=== PATIENT | male | born 1985 | race Two or more races ===

== ENCOUNTER 2021-06-26 14:22 | Inpatient (IN) | payer OTHER ==
--- NOTE | 2021-06-26 15:32 | ED ---
General Adult HPI - General Chief complaint: Psychiatric Symptoms Stated complaint: Petition Time Seen by Provider: 06/26/21 14:35 Source: patient, RN notes reviewed, old records reviewed Mode of arrival: ambulatory Limitations: no limitations - History of Present Illness Initial comments: This a 36-year-old male who presents emergency because there is a petition for him to be evaluated. This includes [facility] brought him in. Patient's states becoming more more paranoid and he is assessed with the fact that he he thinks that she is cheating on her. Patient did agree that he thinks she's cheated on him with at least 8 different people. Patient states he knows this because he can just feel. Patient denies being suicidal or homicidal. Patient states he quit his job because his boss shot himself in the face. Patient denies any drug or alcohol use. Patient denies any physical complaints. - Related Data Home Medications Medication Instructions Recorded Confirmed No Known Home Medications 06/26/21 06/26/21 Allergies Allergy/AdvReac Type Severity Reaction Status Date / Time cephalexin [From Keflex] Allergy Rash/Hives Verified 06/26/21 15:56 Review of Systems ROS Statement: Those systems with pertinent positive or pertinent negative responses have been documented in the HPI. ROS Other: All systems not noted in ROS Statement are negative. Past Medical History Past Medical History: No Reported History History of Any Multi-Drug Resistant Organisms: None Reported Past Surgical History: No Surgical Hx Reported Smoking Status: Current every day smoker Past Alcohol Use History: Daily Past Drug Use History: Marijuana General Exam - General Exam Comments Initial Comments: GENERAL: Patient is well-developed and well-nourished. Patient is nontoxic and well- hydrated and is in mild distress. ENT: Neck is soft and supple. No significant lymphadenopathy is noted. Oropharynx is clear. Moist mucous membranes. Neck has full range of motion without eliciting any pain. EYES: The sclera were anicteric and conjunctiva were pink and moist. Extraocular movements were intact and pupils were equal round and reactive to light. Eyelids were unremarkable. PULMONARY: Unlabored respirations. Good breath sounds bilaterally. No audible rales rhonchi or wheezing was noted. CARDIOVASCULAR: There is a regular rate and rhythm without any murmurs gallops or rubs. ABDOMEN: Soft and nontender with normal bowel sounds. SKIN: Skin is clear with no lesions or rashes and otherwise unremarkable. NEUROLOGIC: Patient is alert and oriented x3. Cranial nerves II through XII are grossly intact. Motor and sensory are also intact. Normal speech, volume and content. Symmetrical smile. MUSCULOSKELETAL: Normal extremities with adequate strength and full range of motion. LYMPHATICS: No significant lymphadenopathy is noted PSYCHIATRIC: Patient is very paranoid that his is cheating on him. Limitations: no limitations Course Vital Signs 06/26/21 14:31 Temperature 98.3 F Pulse Rate 121 H Respiratory 18 Rate Blood Pressure 140/86 O2 Sat by Pulse 98 Oximetry Medical Decision Making - Medical Decision Making EKG shows normal sinus rhythm at 90 bpm IN interval is on a 54 QRS is 94 QT interval 340 QTC is 4:15. Patient's EKG shows no ST segment elevation or depression. I filled out a clinical certification on this patient and patient will be admitted after EPS evaluated the patient. - Lab Data Result diagrams: 06/26/21 15:30 06/26/21 15:30 Lab Results 06/26/21 06/26/21 06/26/21 Range/Units 15:30 15:30 15:30 WBC 6.6 (3.8-10.6) k/uL RBC 5.21 (4.30-5.90) m/uL Hgb 14.9 (13.0-17.5) gm/dL Hct 46.1 (39.0-53.0) % MCV 88.4 (80.0-100.0) fL MCH 28.5 (25.0-35.0) pg MCHC 32.2 (31.0-37.0) g/dL RDW 13.1 (11.5-15.5) % Plt Count 327 (150-450) k/uL MPV 7.0 Neutrophils % 66 % Lymphocytes % 28 % Monocytes % 4 % Eosinophils % 1 % Basophils % 1 % Neutrophils # 4.3 (1.3-7.7) k/uL Lymphocytes # 1.8 (1.0-4.8) k/uL Monocytes # 0.2 (0-1.0) k/uL Eosinophils # 0.1 (0-0.7) k/uL Basophils # 0.1 (0-0.2) k/uL Sodium 141 (137-145) mmol/L Potassium 4.4 (3.5-5.1) mmol/L Chloride 104 (98-107) mmol/L Carbon Dioxide 22 (22-30) mmol/L Anion Gap 15 mmol/L BUN 10 (9-20) mg/dL Creatinine 0.62 L (0.66-1.25) mg/dL Est GFR (CKD-EPI)AfAm >90 (>60 ml/min/1.73 sqM) Est GFR (CKD-EPI)NonAf >90 (>60 ml/min/1.73 sqM) Glucose 83 (74-99) mg/dL POC Glucose (mg/dL) (75-99) mg/dL POC Glu Technology Education Teacher ID Calcium 9.9 (8.4-10.2) mg/dL Total Bilirubin 0.6 (0.2-1.3) mg/dL AST 29 (17-59) U/L ALT 21 (4-49) U/L Alkaline Phosphatase 103 (38-126) U/L Total Protein 8.3 H (6.3-8.2) g/dL Albumin 4.8 (3.5-5.0) g/dL Urine Color Light Yellow Urine Appearance Clear (Clear) Urine pH 5.0 (5.0-8.0) Ur Specific [place] 1.006 (1.001-1.035) Urine Protein Negative (Negative) Urine Glucose (UA) Negative (Negative) Urine Ketones Negative (Negative) Urine Blood Negative (Negative) Urine Nitrite Negative (Negative) Urine Bilirubin Negative (Negative) Urine Urobilinogen <2.0 (<2.0) mg/dL Ur Leukocyte Esterase Negative (Negative) Urine Opiates Screen Not Detected (NotDetected) Ur Oxycodone Screen Not Detected (NotDetected) Urine Methadone Screen Not Detected (NotDetected) Ur Propoxyphene Screen Not Detected (NotDetected) Ur Barbiturates Screen Not Detected (NotDetected) U Tricyclic Antidepress Not Detected (NotDetected) Ur Phencyclidine Scrn Not Detected (NotDetected) Ur Amphetamines Screen Not Detected (NotDetected) U Methamphetamines Scrn Not Detected (NotDetected) U Benzodiazepines Scrn Not Detected (NotDetected) Urine Cocaine Screen Not Detected (NotDetected) U Marijuana (THC) Screen Detected H (NotDetected) 10/19/21 Range/Units 15:40 WBC (3.8-10.6) k/uL RBC (4.30-5.90) m/uL Hgb (13.0-17.5) gm/dL Hct (39.0-53.0) % MCV (80.0-100.0) fL MCH (25.0-35.0) pg MCHC (31.0-37.0) g/dL RDW (11.5-15.5) % Plt Count (150-450) k/uL MPV Neutrophils % % Lymphocytes % % Monocytes % % Eosinophils % % Basophils % % Neutrophils # (1.3-7.7) k/uL Lymphocytes # (1.0-4.8) k/uL Monocytes # (0-1.0) k/uL Eosinophils # (0-0.7) k/uL Basophils # (0-0.2) k/uL Sodium (137-145) mmol/L Potassium (3.5-5.1) mmol/L Chloride (98-107) mmol/L Carbon Dioxide (22-30) mmol/L Anion Gap mmol/L BUN (9-20) mg/dL Creatinine (0.66-1.25) mg/dL Est GFR (CKD-EPI)AfAm (>60 ml/min/1.73 sqM) Est GFR (CKD-EPI)NonAf (>60 ml/min/1.73 sqM) Glucose (74-99) mg/dL POC Glucose (mg/dL) 73 L (75-99) mg/dL POC Glu Technology Education Teacher ID GarciaEvelina Calcium (8.4-10.2) mg/dL Total Bilirubin (0.2-1.3) mg/dL AST (17-59) U/L ALT (4-49) U/L Alkaline Phosphatase (38-126) U/L Total Protein (6.3-8.2) g/dL Albumin (3.5-5.0) g/dL Urine Color Urine Appearance (Clear) Urine pH (5.0-8.0) Ur Specific [place] (1.001-1.035) Urine Protein (Negative) Urine Glucose (UA) (Negative) Urine Ketones (Negative) Urine Blood (Negative) Urine Nitrite (Negative) Urine Bilirubin (Negative) Urine Urobilinogen (<2.0) mg/dL Ur Leukocyte Esterase (Negative) Urine Opiates Screen (NotDetected) Ur Oxycodone Screen (NotDetected) Urine Methadone Screen (NotDetected) Ur Propoxyphene Screen (NotDetected) Ur Barbiturates Screen (NotDetected) U Tricyclic Antidepress (NotDetected) Ur Phencyclidine Scrn (NotDetected) Ur Amphetamines Screen (NotDetected) U Methamphetamines Scrn (NotDetected) U Benzodiazepines Scrn (NotDetected) Urine Cocaine Screen (NotDetected) U Marijuana (THC) Screen (NotDetected) Disposition Clinical Impression: Psychosis Disposition: ADMITTED IP TO THIS [facility] Referrals: None,Stated [Primary Care Provider] - 1-2 days Time of Disposition: 18:14
[2021-06-26 15:39] LABS: Basophils # (A) 0.1 k/uL (0-0.2); Basophils % (A) 1 %; Eosinophils # (A) 0.1 k/uL (0-0.7); Eosinophils % (A) 1 %; HCT 46.1 % (39.0-53.0); HGB 14.9 gm/dL (13.0-17.5); Lymphocytes # (A) 1.8 k/uL (1.0-4.8); Lymphocytes % (A) 28 %; MCH 28.5 pg (25.0-35.0); MCHC 32.2 g/dL (31.0-37.0); MCV 88.4 fL (80.0-100.0); Monocytes # (A) 0.2 k/uL (0-1.0); Monocytes % (A) 4 %; Neutrophils # (A) 4.3 k/uL (1.3-7.7); Neutrophils % (A) 66 %; Platelet Count 327 k/uL (150-450); RBC 5.21 m/uL (4.30-5.90); RDW 13.1 % (11.5-15.5); WBC 6.6 k/uL (3.8-10.6)
[2021-06-26 15:42] LABS: Glucose,Whole Blood 73 mg/dL (75-99)
[2021-06-26 15:49] LABS: Appearance,Urine Clear (Clear); Bilirubin,Urine Negative (Negative); Blood,Urine Negative (Negative); Color,Urine Light Yellow; Glucose,Urine (UA) Negative (Negative); Ketones,Urine Negative (Negative); Leukocyte Esterase,Urine Negative (Negative); Nitrite,Urine Negative (Negative); Protein,Urine Negative (Negative); Specific Gravity,Urine 1.006 (1.001-1.035); Urobilinogen,Urine <2.0 mg/dL (<2.0)
[2021-06-26 16:01] LABS: ALT 21 U/L (4-49); AST 29 U/L (17-59); African American GFR (CKD) >90 (>60 ml/min/1.73 sqM); Albumin 4.8 g/dL (3.5-5.0); Alkaline Phosphatase 103 U/L (38-126); Anion Gap 15 mmol/L; Blood Urea Nitrogen 10 mg/dL (9-20); Calcium 9.9 mg/dL (8.4-10.2); Carbon Dioxide 22 mmol/L (22-30); Chloride 104 mmol/L (98-107); Glucose 83 mg/dL (74-99); Non-African American GFR(CKD) >90 (>60 ml/min/1.73 sqM); Potassium 4.4 mmol/L (3.5-5.1); Sodium 141 mmol/L (137-145); Total Bilirubin 0.6 mg/dL (0.2-1.3); Total Protein 8.3 g/dL (6.3-8.2)
--- NOTE | 2021-06-26 16:01 | CT ---
EXAMINATION TYPE: CT brain wo con DATE OF EXAM: 06/26/2021 COMPARISON: None HISTORY: Altered mental status CT DLP: 1173.4 mGycm. Automated Exposure Control for Dose Reduction was Utilized. TECHNIQUE: CT scan of the head is performed without contrast. FINDINGS: There is no acute intracranial hemorrhage, mass effect, or midline shift identified. The ventricles and sulci are within normal limits in size. The globes are intact and the visualized sin uses are remarkable for inflammatory change in the maxillary sinus, ethmoid air cells. IMPRESSION: No acute intracranial hemorrhage, mass effect, or midline shift is seen.
[2021-06-26 16:06] LABS: Amphetamine Screen,Urine Not Detected (NotDetected); Barbiturate Screen,Urine Not Detected (NotDetected); Benzodiazepines Screen,Urine Not Detected (NotDetected); Cocaine Screen,Urine Not Detected (NotDetected); Methadone Screen, Urine Not Detected (NotDetected); Opiate Screen,Urine Not Detected (NotDetected); Oxycodone Screen, Urine Not Detected (NotDetected); Phencyclidine Screen,Urine Not Detected (NotDetected); Tricyclic Antidepressant,Urine Not Detected (NotDetected); Urn Cannabinoid Scrn Detected (NotDetected)
--- NOTE | 2021-06-26 16:22 | XR ---
EXAMINATION TYPE: XR chest 2V DATE OF EXAM: 06/26/2021 COMPARISON: None HISTORY: 36-year-old male confusion, altered mental status TECHNIQUE: PA and lateral views FINDINGS: The cardiomediastinal silhouette, aorta, and pulmonary vasculature are within normal limits. Lungs an d pleural spaces are clear. IMPRESSION: No acute cardiopulmonary process.
[2021-06-26] MEDS ORDERED: MAGNESIUM HYDROXIDE 2,400 MG/10 ML CUP PO PRN (21:54)
[2021-06-26] MEDS ORDERED: LORazepam 1 MG TAB PO PRN (21:54)
[2021-06-26] MEDS ORDERED: MAG HYDROX/AL HYDROX/SIMETH 30 ML CUP PO PRN (21:54)
[2021-06-26] MEDS ORDERED: ACETAMINOPHEN TAB 325 MG TAB PO PRN (21:54)
[2021-06-26] MEDS ORDERED: HALOPERIDOL LACTATE 5 MG/ML 1 ML VIAL IM PRN (21:57)
[2021-06-26] MEDS ORDERED: haloperidoL 5 MG TAB PO PRN (21:57)
[2021-06-26] MEDS ORDERED: LORazepam 2 MG/ML INJ IM PRN (21:57)
--- NOTE | 2021-06-26 22:48 | P.CONS ---
History of Present Illness - Reason for Consult Consult date: 06/26/21 - History of Present Illness The patient is a 36-year-old male with a PMH of marijuana abuse and alcohol abuse who presented to the emergency room after being petitioned by his due to alleged paranoid behavior. The patient reportedly accuses of cheating on him with as many as 8-10 people during the past several months. He however denied any physical complaints. He denied taking any medications at home. Den ied chest discomfort, shortness of fever, chills, cough, nausea, vomiting, diarrhea. Reports smoking 1 pack she does daily along with using marijuana on a daily basis. Laboratory evaluation in emergency room was reviewed. Review of systems: Pertinent positives and negatives as discussed in HPI, a complete review of systems was performed and all other systems are negative. Physical examination: General: non toxic, no distress, appears at stated age, overweight Derm: no unusual rashes/lesions no unusual ecchymoses, warm, dry Head: atraumatic, normocephalic, symmetric Eyes: EOMI, no lid lag, anicteric sclera, pupils equal round reactive to light ENT: Nose and ears atraumatic, no thrush, no pharyngeal erythema Neck: No thyromegaly, no cervical lymphadenopathy, trachea midline, supple Mouth: no lip lesion, mucus membranes moist Cardiovascular: S1S2 reg, no murmur, positive posterior tibial pulse bilateral, no edema, capillary refill less than 2 seconds Lungs: CTA bilateral, no rhonchi, no rales , no accessory muscle use Abdominal: soft, nontender to palpation, no guarding, no appreciable organomegaly, normal bowel sounds Ext: no gross muscle atrophy, muscle strength 5 out of 5 in all 4 extremities grossly, no contractures, Neuro: CN II-XI grossly intact, light touch intact all 4 extremities, finger to nose within normal limits, Psych: Alert, oriented, appropriate affect Assessment/plan Marijuana abuse, tobacco abuse -Advised on importance of cessation Anxiety and paranoia -As per psychiatry Thank you for allowing us to participate in the care of this patient. We will follow peripherally. Do not hesitate to contact us with questions. Someone can be reached from the [facility] hospitalist group at all hours of the day at [phone]. Past Medical History Past Medical History: No Reported History History of Any Multi-Drug Resistant Organisms: None Reported Past Surgical History: No Surgical Hx Reported Smoking Status: Current every day smoker Past Alcohol Use History: Daily Past Drug Use History: Marijuana Medications and Allergies Home Medications Medication Instructions Recorded Confirmed Type No Known Home Medications 06/26/21 06/26/21 History Allergies Allergy/AdvReac Type Severity Reaction Status Date / Time cephalexin [From Keflex] Allergy Rash/Hives Verified 06/26/21 15:56 Physical Exam Vitals: Vital Signs Temp Pulse Resp BP Pulse Ox 06/26/21 18:25 99.2 F 88 149/84 98 06/26/21 14:31 98.3 F 121 H 18 140/86 98 Intake and Output 06/26/21 06/26/21 06/26/21 06:59 14:59 22:59 Other: Weight 89.675 kg Results CBC & Chem 7: 06/26/21 15:30 06/26/21 15:30 Labs: Abnormal Lab Results - Last 24 Hours (Table) 06/26/21 06/26/21 06/26/21 Range/Units 15:30 15:30 15:40 Creatinine 0.62 L (0.66-1.25) mg/dL POC Glucose (mg/dL) 73 L (75-99) mg/dL Total Protein 8.3 H (6.3-8.2) g/dL U Marijuana (THC) Screen Detected H (NotDetected)
[2021-06-27] MEDS: NICOTINE 14MG/24HR PATCH TRANSDERM SCH (08:41)
[2021-06-27 10:35] LABS: Chol/HDL Ratio 2.34 Ratio; HDL Cholesterol 70.8 mg/dL (40.00-60.00); VLDL Calculation 21.2 mg/dL (5.00-40.00)
--- NOTE | 2021-06-27 11:09 | P.HP ---
Psychiatric H&P - . H&P Date: 06/27/21 History & Physical: Allergies Allergy/AdvReac Type Severity Reaction Status Date / Time cephalexin From Keflex Allergy Rash/Hives Verified 06/26/21 15:56 Vital Signs Temp 97.2 F L 06/27/21 05:57 Pulse 91 06/27/21 05:57 Resp 18 06/27/21 05:57 BP 119/64 06/27/21 05:57 Pulse Ox 98 06/26/21 22:48 Intake & Output 06/26/21 06/27/21 06/27/21 18:59 06:59 18:59 Weight 89.675 kg 86.046 kg Laboratory Last Values WBC 6.6 k/uL (3.8-10.6) 06/26/21 15:30 RBC 5.21 m/uL (4.30-5.90) 06/26/21 15:30 Hgb 14.9 gm/dL (13.0-17.5) 06/26/21 15:30 Hct 46.1 % (39.0-53.0) 06/26/21 15:30 MCV 88.4 fL (80.0-100.0) 06/26/21 15:30 MCH 28.5 pg (25.0-35.0) 06/26/21 15:30 MCHC 32.2 g/dL (31.0-37.0) 06/26/21 15:30 RDW 13.1 % (11.5-15.5) 06/26/21 15:30 Plt Count 327 k/uL (150-450) 06/26/21 15:30 MPV 7.0 06/26/21 15:30 Neutrophils % 66 % 06/26/21 15:30 Lymphocytes % 28 % 06/26/21 15:30 Monocytes % 4 % 06/26/21 15:30 Eosinophils % 1 % 06/26/21 15:30 Basophils % 1 % 06/26/21 15:30 Neutrophils # 4.3 k/uL (1.3-7.7) 06/26/21 15:30 Lymphocytes # 1.8 k/uL (1.0-4.8) 06/26/21 15:30 Monocytes # 0.2 k/uL (0-1.0) 06/26/21 15:30 Eosinophils # 0.1 k/uL (0-0.7) 06/26/21 15:30 Basophils # 0.1 k/uL (0-0.2) 06/26/21 15:30 Sodium 141 mmol/L (137-145) 06/26/21 15:30 Potassium 4.4 mmol/L (3.5-5.1) 06/26/21 15:30 Chloride 104 mmol/L (98-107) 06/26/21 15:30 Carbon Dioxide 22 mmol/L (22-30) 06/26/21 15:30 Anion Gap 15 mmol/L 06/26/21 15:30 BUN 10 mg/dL (9-20) 06/26/21 15:30 Creatinine 0.62 mg/dL (0.66-1.25) L 06/26/21 15:30 Est GFR (CKD-EPI)AfAm >90 (>60 ml/min/1.73 sqM) 06/26/21 15:30 Est GFR (CKD-EPI)NonAf >90 (>60 ml/min/1.73 sqM) 06/26/21 15:30 Glucose 83 mg/dL (74-99) 06/26/21 15:30 POC Glucose (mg/dL) 73 mg/dL (75-99) L 06/26/21 15:40 POC Glu Corsets Salesperson Evelina Shearer 06/26/21 15:40 Calcium 9.9 mg/dL (8.4-10.2) 06/26/21 15:30 Total Bilirubin 0.6 mg/dL (0.2-1.3) 06/26/21 15:30 AST 29 U/L (17-59) 06/26/21 15:30 ALT 21 U/L (4-49) 06/26/21 15:30 Alkaline Phosphatase 103 U/L (38-126) 06/26/21 15:30 Total Protein 8.3 g/dL (6.3-8.2) H 06/26/21 15:30 Albumin 4.8 g/dL (3.5-5.0) 06/26/21 15:30 TSH 1.090 mIU/L (0.465-4.680) 06/26/21 15:30 Urine Color Light Yellow 06/26/21 15:30 Urine Appearance Clear (Clear) 06/26/21 15:30 Urine pH 5.0 (5.0-8.0) 06/26/21 15:30 Ur Specific [place] 1.006 (1.001-1.035) 06/26/21 15:30 Urine Protein Negative (Negative) 06/26/21 15:30 Urine Glucose (UA) Negative (Negative) 06/26/21 15:30 Urine Ketones Negative (Negative) 06/26/21 15:30 Urine Blood Negative (Negative) 06/26/21 15:30 Urine Nitrite Negative (Negative) 06/26/21 15:30 Urine Bilirubin Negative (Negative) 06/26/21 15:30 Urine Urobilinogen <2.0 mg/dL (<2.0) 06/26/21 15:30 Ur Leukocyte Esterase Negative (Negative) 06/26/21 15:30 Urine Opiates Screen Not Detected (NotDetected) 06/26/21 15:30 Ur Oxycodone Screen Not Detected (NotDetected) 06/26/21 15:30 Urine Methadone Screen Not Detected (NotDetected) 06/26/21 15:30 Ur Propoxyphene Screen Not Detected (NotDetected) 06/26/21 15:30 Ur Barbiturates Screen Not Detected (NotDetected) 06/26/21 15:30 U Tricyclic Antidepress Not Detected (NotDetected) 06/26/21 15:30 Ur Phencyclidine Scrn Not Detected (NotDetected) 06/26/21 15:30 Ur Amphetamines Screen Not Detected (NotDetected) 06/26/21 15:30 U Methamphetamines Scrn Not Detected (NotDetected) 06/26/21 15:30 U Benzodiazepines Scrn Not Detected (NotDetected) 06/26/21 15:30 Urine Cocaine Screen Not Detected (NotDetected) 06/26/21 15:30 U Marijuana (THC) Screen Detected (NotDetected) H 06/26/21 15:30 Coronavirus (PCR) Not Detected (Not Detectd) 06/26/21 19:53 06/27/21 10:24 IDENTIFYING DATA: Patient is a 36-year-old male, 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 HPI: Patient presented to the hospital he was brought in by the Janitor Caretaker on a petition by the . According to petition by she is concerned. Patient's mental health as patient has been more religiously preoccupied and making bizarre statements to her. Patient was seen wandering the hallways and agreeable to speak to card writer hand. Patient claims that he does not feel he needs to be in the hospital. He states that his knows that he is trying to get a divorce and that she has petitioned him to the hospital to "prove that I'm mentally unfit". He states that she has been trying to manipulate him to stay away from the kids. He claims that she has been "cheating and lying" and states that she has been with several other partners. He was fairly vague about the reasons why he believes that she is cheating on him and states that "she's out of all the time and I watch the ring camera and have a feeling about it". He states that they have not gone into significant arguments but he has been staying at a hotel down the road as he does not trust her. 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 He claimed that his mood is "fine" and denying any anxiety today. He did speak significantly about praying to God and talking to himself more lately. Patient did display some irritability during conversation and is convinced that his wants him to be "locked up". Patient denies any current suicidal or homicidal ideations intent or plan. At this time patient denies any auditory or visual hallucinations. Patient denies any flight of ideas racing thoughts and increased in goal directed behavior. Patient admits to using her wanted daily and cigarettes daily. He also states that he drinks 2-3 beers every other day and is denying any problems with alcohol or any withdrawal symptoms in the past. Aircraft Landing Gear Inspector spoke with patient's over the phone Selene, on number which was written on the petition. She expresses significant concern about patient's recent behaviors. She states that for the last 2 weeks patient has been talking to himself more in the garage and in the yard. She states that he has been increasingly paranoid and accusing her of cheating. She states that he has also been more religiously preoccupied and making bizarre statements. She claims th at he has a handgun and she is worried about her child's safety. She claims that he has rented a hotel room to be away from them and has left his job abruptly without little notice. She states she is very concerned about his mental health recently and claims that over the weekend her family was over and he spent "the entire time in the garage talking to himself" is isolating. PAST PSYCHIATRIC HISTORY: Patient states that he has no significant mental health history. Patient denies being on any psychiatric medications. Patient denies any previous psychiatric hospitalizations. Patient denies any psychiatric outpatient follow-up. Patient denies any history of suicide attempts in the past. PMH:denies ALLERGIES: as per EMR CHEMICAL DEPENDENCY HISTORY: as per HPI FAMILY PSYCHIATRIC/SUBSTANCE USE HISTORY: denies SOCIAL HISTORY: Patient was born and raised in [facility]. He states that after he moved to [place]. Claims that he completed high school. He states that he did go to correction in the past for a misdemeanor crime for "fighting". He states that he has 2 kids and is a duster tender and is currently . MENTAL STATUS EXAM: General Appearance: Patient appears to be stated age is alert, directable, and attempts to cooperate. paranoia. Patient appears to have fair hygiene and grooming. Behavior: Patient is seated without any agitated behavior. Paranoia. Attempts to cooperate. Speech: Patient's speech is fluent and nonpressured. Mood/Affect: Patient reports their mood is "fine", affect is congruent and constricted. Suicidality/Homicidality: Patient denies having any homicidal ideation intent or plan. Denies any suicidal ideations intent or plan Perceptions: Patient denies any visual hallucinations and denies any auditory hallucinations Though content/process: Patient is endorsing significant paranoia towards his . Religiously preoccupied. Memory and concentration: AOX3, grossly intact for the purposes of this session. Can spell "WORLD" backwards Judgment and insight: poor STRENGTHS/WEAKNESSES: strength is that patient is resilient. Weakness is that patient has poor judgment and is impulsive INTELLECT: average IMPRESSIONS: Psychosis unspecified, rule out substance-induced psychotic disorder Cannabis use disorder Nicotine dependence PLAN: -Patient is admitted under involuntary status to MHU for stabilization of psychiatric symptoms and safety. Patient has not signed [adult voluntary form and] [medication consent] and is placed in patient's chart. [A second certification was completed and along with petition will be filed for court.] -Medications : Will start patient on paliperidone by mouth 3 mg daily at bedtime for psychosis. -Ativan and haldol PRN for agitation/aggression -Patient was informed of the risks, benefits and side effects of the medication and patient verbally consented to taking the medications. Patient signed med consent form and was placed in chart. -Internal Medicine consult to perform medical evaluation and physical. -NRT - [nicotine patch] -SW on board for discharge planning. Encourage patient to participate in groups to work on coping skills. [Will await deferral and court date.] []
[2021-06-27] MEDS: PALIPERIDONE 3 MG TAB.ER.24 PO SCH (21:29)
[2021-06-28] MEDS: NICOTINE 14MG/24HR PATCH TRANSDERM SCH (08:25)
--- NOTE | 2021-06-28 10:37 | P.PN ---
Progress Note - Text Progress Note Date: 06/28/21 Interval History: Patient was seen wandering the hallways and was directable and agreeable to braulio edwards with service writer advisor in the office. Patient was rambling at times and is tangential. He continues to speak about his relationship with God and was carrying around a Bible. He states that he has no "ill will" towards his and wants to be from her. He states that he wants to be "left alone". He refused his paliperidone last night and states that "I want any pharmaceuticals". He has po or insight and judgment. He states that he slept fairly last night. He is denying any depression or anxiety today. He asked a lot of questions about the project manager and the court process. At this time patient denies any suicidal or homical ideations, intent or plan. Patient denies any auditory, visual hallucinations and denies any paranoia or delusions. Patient denies any side effects from the medications and has been compliant with meds. Mental Status Exam: General Appearance: Patient appears to be stated age is alert, directable, and attempts to cooperate. paranoia. Patient appears to have fair hygiene and grooming. Behavior: Patient is seated without any agitated behavior. Paranoia. Attempts to cooperate. Speech: Patient's speech is fluent and nonpressured. Mood/Affect: Patient reports their mood is "fine", affect is congruent and constricted. Suicidality/Homicidality: Patient denies having any homicidal ideation intent or plan. Denies any suicidal ideations intent or plan Perceptions: Patient denies any visual hallucinations and denies any auditory hallucinations Though content/process: Patient is endorsing significant paranoia towards his . Religiously preoccupied at times. Memory and concentration: AOX3, grossly intact for the purposes of this session. Judgment and insight: poor Assessment Psychosis unspecified, rule out substance-induced psychotic disorder Cannabis use disorder Nicotine dependence Plan: -Patient continues to meet criteria for inpatient psychiatric admission for symptom stabilization and safety. Patient has not signed adult voluntary form and medication consent and was placed in patient's chart. -Medications: Continue with paliperidone by mouth 3 mg daily at bedtime for psychosis. Patient is not taking this medication. -When necessary Ativan and Haldol for agitation/aggression. -NRT - nicotine patch -SW on board for discharge planning. Encouraged the patient to participate in milieu. Currently awaiting deferral with assistant attorney general and court date.
[2021-06-28] MEDS: PALIPERIDONE 3 MG TAB.ER.24 PO SCH (20:57)
--- NOTE | 2021-06-29 08:49 | P.PN ---
Progress Note - Text Progress Note Date: 06/29/21 Interval History: Patient was seen wandering the hallways and was directable and agreeable to sp jerry with typewriter operator automatic in the office. He continues to be religiously preoccupied at times however this has been mildly improving. She continues to state that his is cheating on him however is not giving any reasons why. He was strongly questioning why he is being held in the hospital and why his "civil rights are violated". He also states that his lied on the petition and that he wasn't doing anything "abnormal". He states that he wants to be "left alone". He refused his paliperidone last night and this again. He states that "I dont want any pharmaceuticals, I really don't need them ". He has poor insight and judgment. He states that he slept fairly last night. He is denying any depression or anxiety today. He asked a lot of questions about the technician support engineer and the court process. At this time patient denies any suicidal or homical ideations, intent or plan. Patient denies any auditory, visual hallucinations and denies any paranoia or delusions. Patient denies any side effects from the medications and has been compliant with meds. Mental Status Exam: General Appearance: Patient appears to be stated age is alert, directable, and attempts to cooperate. paranoia. Patient appears to have fair hygiene and grooming. Behavior: Patient is seated without any agitated behavior. Paranoia. Attempts to cooperate. Speech: Patient's speech is fluent and nonpressured. Mood/Affect: Patient reports their mood is "fine", affect is congruent and constricted. Suicidality/Homicidality: Patient denies having any homicidal ideation intent or plan. Denies any suicidal ideations intent or plan Perceptions: Patient denies any visual hallucinations and denies any auditory hallucinations Though content/process: Patient is endorsing significant paranoia towards his . Religiously preoccupied at times, improving mildly Memory and concentration: AOX3, grossly intact for the purposes of this session. Judgment and insight: poor Assessment Psychosis unspecified, rule out substance-induced psychotic disorder Cannabis use disorder Nicotine dependence Plan: -Patient continues to meet criteria for inpatient psychiatric admission for symptom stabilization and safety. Patient has not signed adult voluntary form and medication consent and was placed in patient's chart. -Medications: Continue with paliperidone by mouth 3 mg daily at bedtime for psychosis. Patient is not taking this medication. -When necessary Ativan and Haldol for agitation/aggression. -NRT - nicotine patch -SW on board for discharge planning. Encouraged the patient to participate in milieu. Full court hearing date set for July 16 and deferral with state's attorney today.
[2021-06-29] MEDS: NICOTINE 14MG/24HR PATCH TRANSDERM SCH (09:55)
[2021-06-29] MEDS: PALIPERIDONE 3 MG TAB.ER.24 PO SCH (21:55)
[2021-06-30] MEDS: NICOTINE 14MG/24HR PATCH TRANSDERM SCH (09:05)
--- NOTE | 2021-06-30 15:50 | PN ---
PROGRESS NOTE DATE OF SERVICE: 06/30/2021. CHIEF COMPLAINT: The patient was noted to have sikhism preoccupation and was making bizarre statements to his . She completed a petition for involuntary hospitalization. INTERVAL HISTORY: The patient has been doing fair. He had a quiet day yesterday. He comes out on the unit. He will interact a little with others though mostly has a quiet manner. He chose not to attend groups yesterday. He said he slept fair last night. Today he has been up. Again he has not attended groups. He tends to minimize any issues he has had. He tends to downplay what had been documented in regard to sikhism preoccupation as well as bizarre thinking. He says that he has had some focus on sikhism thoughts, which he says he turns to for support. He does not believe that he was doing this to any excess. He feels that there is not much indication for his being on the unit. I had a telephone call with the patient's with the patient in attendance. It is noted that the indicated that just in the last several days she has been increasingly concerned about his behavior. She said that going back possibly a month ago she did not note any problems or concerns. She was not aware of any precipitating circumstances that might specifically relate to his current situation. She does say that there has been stress, though she felt that he was doing fine and at his baseline until just recently. She notes that two issues that came up included that 1) he moved out of the house, and 2) he rather precipitously quit his job. She did say that there were concerns about their relationship, though she was not too specific on details. The patient acknowledged the same and also was not able to identify concrete factors in that regard. The patient did make the comment that he would be able to move in with his mother on an interim while the two of them worked on their issues. He indicated that he had a desire to continue to work on the relationship. His said the same. It is noted that in the admission notes there were indications the patient believed his was having affairs with various people. That issue was not raised during our conversation. When I asked the patient about this in detail, he was also vague and seemed to indicate he did not have any clear knowledge of such events though still had some suspicion in that regard. By the end of the conversation, there did seem to be some agreement that the patient would move back home. The indicated that she was willing to go to any counseling appointments and seemed to make the suggestion. She had concerns about there needing to be therapy, though again no specifics given. The patient was somewhat reluctant about being on Invega though was willing to continue with it at this time. He did not identify any problems with the medication. MENTAL STATUS EXAM: Patient sat without restlessness. He gave fairly good eye contact. He answered questions with brief responses. His thoughts were clear. He was somewhat spontaneous. He tended to downplay any problems he was having and believed that what had been previously documented was of questionable accuracy. His affect was somewhat intense at times, his mood dysphoric. He was moderately distressed. There was no clear indication of thought disorder. Cognition was clear. ASSESSMENT: I will continue the current diagnosis and treatment plan. We will continue to make efforts to engage the patient in individual and group therapeutic activities. I will continue the patient on Invega 3 mg a day. We will set up a family meeting with the patient's early in the week to help address treatment and discharge planning issues. It does appear that a referral to couples counseling may be one important avenue for followup. We will focus on stabilization and discharge planning. THOMASL / SHAHANAN: [id number] /
[2021-06-30] MEDS: PALIPERIDONE 3 MG TAB.ER.24 PO SCH (21:19)
[2021-07-01 07:27] VITALS: BP 118/74; PULSE 94; RESP 16; TEMP 97.3
[2021-07-01] MEDS: NICOTINE 14MG/24HR PATCH TRANSDERM SCH (08:37)
--- NOTE | 2021-07-01 11:17 | PN ---
PROGRESS NOTE DATE OF SERVICE: 07/01/2021. CHIEF COMPLAINT: The patient was noted to have yazidi preoccupation and was making bizarre statements to his . She completed a petition for involuntary hospitalization. INTERVAL HISTORY: Patient has been doing fairly well. He had a quiet day yesterday. He comes out on the unit. He will interact with others. He chose not to attend groups yesterday. He did say he would make an effort to attend groups today. He said his mood was somewhat improved; he has a better outlook. He apparently has had some conversations with his in regard to the living situation and that he will go back to live in the family home, whereas his will be staying for a while with her mother, who is directly across the street from the family home. The patient tolerates his psychotropic medications. MENTAL STATUS EXAM: Patient sat without restlessness. He gave fairly good eye contact. He answered questions with brief responses. His thoughts were clear. His affect was a little constricted though not significantly so. His mood was even. He did not appear to be distressed. ASSESSMENT: I will continue the current diagnosis and treatment plan. I will continue psychotropic medications the same. I reviewed issues relating to his continuing on Invega. We will look to set up a family meeting early in the week, possibly tomorrow, as part of discharge planning. SHANTELL / BECKA: [id number] /
[2021-07-01] MEDS: PALIPERIDONE 3 MG TAB.ER.24 PO SCH (20:58)
[2021-07-02] MEDS: NICOTINE 14MG/24HR PATCH TRANSDERM SCH (08:37)
== END 2021-07-02 14:11 | disposition home or self-care (01) | DRG 885 ==
LOC: EC 14:22 → 3MHU 21:52
PROVIDERS: ADMIT Psychiatry & Neurology Psychiatry; ATTEND Psychiatry & Neurology Psychiatry
DX: F29 Unspecified psychosis not due to a substance or known physiological condition (principal); F12.10 Cannabis abuse, uncomplicated; F10.10 Alcohol abuse, uncomplicated; F17.210 Nicotine dependence, cigarettes, uncomplicated; F41.9 Anxiety disorder, unspecified; Z88.1 Allergy status to other antibiotic agents
CPT/HCPCS: 36415; 70450; 71046; 80053; 80061; 80306; 81003; 82075; 83036; 84443; 85025; 87635; 93005; 99285